=== PATIENT | female | born 1970 | race Caucasian/White ===

== ENCOUNTER 2018-02-06 12:53 | Emergency (ER) | payer OTHER ==
[~2018-02-06] VITALS: Ht 172.7 cm; Wt 81.6 kg
[~2018-02-06 12:53] MED LIST: IBUPROFEN800 M1 PO; KEFLEX500 M1 PO
--- NOTE | 2018-02-06 13:08 | ED UPPER/LOWER EXTREMITY COMPL ---
History of Present Illness General Chief Complaint: Upper Extremity Injury Stated Complaint: S/P FALL OFF BACK OF TRUCK RT ELBOW PAIN Source: patient Exam Limitations: no limitations Vital Signs & Intake/Output Vital Signs & Intake/Output Vital Signs Date Time Temp Pulse Resp B/P B/P Pulse O2 O2 Flow FiO2 Mean Ox Delivery Rate 02/06 1523 98.2 77 18 122/74 98 02/06 1307 98.6 73 18 127/72 96 Room Air Allergies Coded Allergies: Iodinated Contrast- Oral and IV Dye (STOPS BREATHING 02/06/18) crab (ANAPHYLAXIS 02/06/18) tree nut (ANAPHYLAXIS 02/06/18) Reconcile Medications Albuterol Sulfate (Proair Hfa) 90 MCG HFA.AER.AD 2 PUF INH AD PRN EXERCISE INDUCED ASTHMA (Reported) Cholecalciferol (Vitamin D3) (Vitamin D) (Unknown Strength) CAPSULE (Unknown Dose) PO DAILY SUPPLEMENT (Reported) Magnesium Oxide (Magnesium) (Unknown Strength) CAPSULE (Unknown Dose) PO DAILY SUPPLEMENT (Reported) Omeprazole 40 MG CAPSULE.DR 1 CAP PO PRN GI (Reported) Sertraline HCl (Zoloft) 50 MG TABLET 3 TAB PO DAILY MENTAL HEALTH (Reported) Vitamin E Mixed (Vitamin E) (Unknown Strength) TABLET (Unknown Dose) PO DAILY SUPPLEMENT (Reported) Triage Nurses Notes Reviewed? yes HPI: 47 year old female presenting to the ED with complaints of R elbow pain and tingling in her R hand after falling from standing height while getting out of a truck bed. This happened the evening prior to presentation, around 5pm. Denied LOC with the fall. The patient had hoped the pain would improve, but came to the ED this afternoon when it did not. (Mitch Staley MD) Past History Medical History Any Pertinent Medical History? see below for history Neurological: NONE EENT: NONE Cardiovascular: NONE Respiratory: NONE Gastrointestinal: NONE Hepatic: NONE Renal: NONE Musculoskeletal: NONE Psychiatric: depression Endocrine: NONE Tetanus Vaccine: 03/09/16 Surgical History Surgical History: non-contributory Psychosocial History Who do you live with Spouse What is your primary language Divehi Family History Hx Contributory? No (Mitch Staley MD) Review of Systems Review of Systems Constitutional: Denies: chills, diaphoresis, malaise. Cardiovascular: Denies: chest pain, syncope. Gastrointestinal/Abdominal: Denies: abdominal pain, nausea, vomiting. Musculoskeletal: Reports: joint pain, joint swelling. (Mitch Staley MD) Physical Exam Physical Exam General Appearance: well developed/nourished, no apparent distress, alert, awake Eyes: Bilateral: normal appearance, PERRL, EOMI. Neck: normal inspection, supple, full range of motion Cardiovascular/Respiratory: normal breath sounds, regular rate/rhythm Shoulder Left: normal range of motion, normal inspection Shoulder Right: normal range of motion, normal inspection Elbow Left: normal range of motion, normal inspection Elbow Right: abrasions/lacerations, limited range of motion Hand Left: normal inspection, normal range of motion Hand Right: limited range of motion (pronation/supination limited) (Mitch Staley MD) Progress Differential Diagnosis: contusion, dislocation, fracture Plan of Care: Orders Procedure Date/time Status XRY-ELBOW 3 OR MORE VIEWS, R 02/06 1311 Active (Mitch Staley MD) Departure Departure Disposition: HOME OR SELF CARE Condition: Stable Clinical Impression Primary Impression: Contusion Qualifiers: Encounter type: initial encounter Contusion area: elbow Laterality: right Qualified Code: S50.01XA - Contusion of right elbow, initial encounter Secondary Impressions: Elbow pain, right Fall Qualifiers: Encounter type: initial encounter Qualified Code: W19.XXXA - Unspecified fall, initial encounter Referrals: Marcela LEAHY,Gurdeep Holder (PCP/Family) [facility] Additional Instructions: Please follow-up with your primary care provider and with the orthopedic surgeon (referral included) about your recent ED visit. Departure Forms: Customer Survey General Discharge Information (Mitch Staley MD) Resident Co-Sign Statement Statement: ED Attending supervision documentation- [x] I saw and evaluated the patient. I have also reviewed all the pertinent lab results and diagnostic results. I agree with the findings and the plan of care as documented in the Resident's documentation. [] I have reviewed the ED Record and agree with the Resident's documentation. [] Additions or exceptions (if any) to the Resident's note and plan are summarized below: [] I saw and personally examined the patient and I agree with the real estate intern's evaluation. Status post fall. Right elbow swelling, pain and tenderness. She does have full range of motion to the right elbow. Right radial ulnar and median nerve function is intact. No fracture identified on x-ray. Concern for fracture was still present. She was placed in a posterior splint, told to follow-up with orthopedics in the a.m. and to obtain an outpatient MRI testing should she still have pain in conjunction with the orthopedist (Jalen Mancuso DO) Procedures Splinting Location: R Elbow Manual Alignment Performed: No Hand-Made Type: orthoglass Splint Applied By: splint applied by me Pre-Proc Neuro Vasc Exam: normal Post-Proc Neuro Vasc Exam: normal Progress: Maintain splint for comfort and immobilization until follow-up with ortho (Luís LEAHY,Mitch)
--- NOTE | 2018-02-06 14:02 | RADIOLOGY REPORT ---
EXAMINATION: XR ELBOW, RIGHT CLINICAL INFORMATION: Status post fall onto right elbow. Evaluate for fracture. COMPARISON: None TECHNIQUE: AP, bilateral oblique, and lateral views of the right elbow. FINDINGS: There is no fracture, malalignment, or joint effusion. There is a small enthesophyte at the triceps insertion site on the olecranon process. There are no degenerative arthritic changes. IMPRESSION: No evidence of acute injury.
[2018-02-06] MEDS ORDERED: ZOLOFT50 M1 PO (14:13)
[2018-02-06] MEDS ORDERED: MAGNESIUM400 M1 PO (14:14)
[2018-02-06] MEDS ORDERED: VITAMIN D2000 UNIT PO (14:14)
[2018-02-06] MEDS ORDERED: VITAMIN E100 UNI2 PO (14:14)
[2018-02-06] MEDS ORDERED: OMEPRAZOLE40 M1 PO (14:16)
[2018-02-06] MEDS ORDERED: PROAIR HFA8.5 GM INH (14:16)
[2018-02-06 15:23] VITALS: BP 122/74
== END 2018-02-06 15:23 ==
LOC: ERH 12:53
DX: S50.01XA Contusion of right elbow, initial encounter (principal); W19.XXXA Unspecified fall, initial encounter; Y93.89 Activity, other specified
CPT/HCPCS: 73080-RT